=== PATIENT | male | born 2000 | race African-American/Black ===

== ENCOUNTER 2018-12-03 19:33 | Emergency (ER) | payer SELFPAY ==
[~2018-12-03] VITALS: Ht 177.8 cm; Wt 95.3 kg
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
--- OUTSIDE RECORDS SUMMARY | 2018-12-03 19:36 | XMS REPORT ---
Author Author [facility] Address Unknown Phone Unavailable Care Team Providers Care Name Role Phone Unavailable Unavailable Payers Payer Name Policy Type Policy Number Effective Date Expiration Date Problems This patient has no known problems. Allergies, Adverse Reactions, Alerts Allergy Name Allergy Type Status Severity Reaction(s) Onset Date Inactive Date Treating Clinician Comments Fish Containing Products DA Active SV 2018-11-23 00:00:00 Fish Containing Products DA Active SV 2018-07-18 00:00:00 Fish Containing Products DA Active SV 2017-09-24 00:00:00 Medications This patient has no known medications. Encounters Start Date/Time End Date/Time Encounter Type Admission Type Attending Clinicians Care Facility Care Department Encounter ID 2018-11-24 22:23:20 2018-11-24 22:23:20 Emergency [facility] [id number] 2018-11-24 15:49:20 2018-11-24 15:49:20 Emergency [facility] [id number] Results Test Description Test Time Test Comments Text Results Atomic Results Result Comments BASIC METABOLIC PANEL 2018-11-23 01:29:00 SODIUM (test code=NA) 139 mmol/L 136-145 POTASSIUM (test code=K) 3.5 mmol/L 3.5-5.1 CHLORIDE (test code=CL) 103.0 mmol/L 98-107 CARBON DIOXIDE (test code=CO2) 25.0 mmol/L 21-32 ANION GAP (test code=GAP) 14.5 10-20 GLUCOSE (test code=GLU) 113 mg/dL 74-106 BLOOD UREA NITROGEN (test code=BUN) 19 mg/dL 7-18 GLOMERULAR FILTRATION RATE (test code=GFR) > 60 mL/min >=60 Estimated GFR by using Modified MDRD formula.Chronic kidney disease is defined as either kidney damageor GFR <60 mL/min/1.73 m2 for >3 months. CREATININE (test code=CREAT) 1.40 mg/dL 0.7-1.3 BUN/CREATININE RATIO (test code=BUN/CREA) 13.6 10-20 CALCIUM (test code=CA) 8.6 mg/dL 8.5-10.1 [id number] 01:29:00* Test Item Value Reference Range Comments ALCOHOL (test code=ALC) < 3 mg/dL 0.0-3.0 INTERPRETIVE DATA NOTE: POSITIVE SCREENING RESULTS SHOULD BE CONSIDERED PRESUMPTIVE.WHEN COLLECTED FOR MEDICAL PURPOSES ONLY. SPECIMEN WILL NOTBE COLLECTED BY CHAIN OF CUSTODY.IF A CONFIRMATION OF POSITIVE RESULTS IS DESIRED, ACONFIRMATION TEST MUST BE REQUESTED BY THE PHYSICIAN AT ANADDITIONAL CHARGE TO THE PATIENT. BASIC METABOLIC [id number] 01:20:00* Test Item Value Reference Range Comments SODIUM (test code=NA) 139 mmol/L 136-145 POTASSIUM (test code=K) 3.5 mmol/L 3.5-5.1 CHLORIDE (test code=CL) 103.0 mmol/L 98-107 CARBON DIOXIDE (test code=CO2) mmol/L 21-32 ANION GAP (test code=GAP) 10-20 GLUCOSE (test code=GLU) mg/dL 74-106 BLOOD UREA NITROGEN (test code=BUN) mg/dL 7-18 GLOMERULAR FILTRATION RATE (test code=GFR) mL/min >=60 CREATININE (test code=CREAT) mg/dL 0.7-1.3 BUN/CREATININE RATIO (test code=BUN/CREA) 10-20 CALCIUM (test code=CA) mg/dL 8.5-10.1 [id number] 01:20:00* Test Item Value Reference Range Comments ALCOHOL (test code=ALC) mg/dL 0-3 - XR TIBIA/FIBULA 2 V [id number] 01:13:00 FAX: Bereket Bosch DO [place]: B St: REG Name: [facility] : [birth year] Age/S: 18/M [address] [facility] Unit #: [id number] Loc: [place] [address] Phys: Bereket Bosch DO Acct: [id number] Dis Date: Status: REG ER PHONE #: [phone] Exam Date: 11/23/2018 0055 FAX #: [phone] Reason: LEG PAIN EXAMS: CPT CODE: [id number] XR TIBIA/FIBUL[place] 2 [place] [id number] EXAM: - XR TIBIA/FIBULA 2 V LT HISTORY: Pain. COMPARISON: None available time of inte rpretation. FINDINGS: 2 AP and 2 lateral views of the right tibia and fibula are provided. There is no acute fracture or malalignmen t. IMPRESSION: No acute osseous abnormality. at 0113 Reported and signed by: Burton Tucker MD CC: Bereket Bosch DO Technologist: RT LYN(R) Trnscrd Date/Time/By: 0 11/23/2018 (0113) : By: [email or web address] Orig Print D/T: S: 11/23/2018 (0116) PAGE 1 Signed Report - XR ANKLE 3 + V [id number] 01:10:00 FAX: Bereket Bosch DO [place]: B St: REG Name: [facility] PR[facility] : [birth year] Age/S: 18/M [address] Unit #: [id number] Loc: [place] [address] Phys: Bereket Bosch DO Acct: [id number] Dis Date: Status: REG ER PHONE #: [phone] Exam Date: 11/23/2018 0050 FAX #: [phone] Reason: ANKLE PAIN EXAMS: CPT CODE: [id number] XR ANKLE 3 + V LT [id number] EXAM: - XR ANKLE 2+ V LT HISTORY: Pain. COMPARISON: None available time of interpreta tion. FINDINGS: AP and lateral view of the left ankle is pro vided. There is no acute fracture or malalignment. The joint spaces are p reserved. The osseous structures are intact. IMPRESSION: No acute osseous abnormality. at 0110 Reported and signed by: Burton Tucker MD CC: Bereket Bosch DO Technologist: RT LYN(Anu) Trnscrd Date/Time/By: 11/23/2018 (0110) : By: [email or web address] Orig Print D/T: S: 11/23/2018 (0114) PAGE 1 Signed Report CBC W/O [id number] 01:05:00 * Test Item Value Reference Range Comments WHITE BLOOD CELL (test code=WBC) 5.6 K/mm3 4.5-12.5 RED BLOOD CELL (test code=RBC) 4.90 mill/mm3 4.0-5.8 HEMOGLOBIN (test code=HGB) 13.5 gram/dL 13.0-17.5 HEMATOCRIT (test code=HCT) 41.2 % 42.0-52.0 MEAN CELL VOLUME (test code=MCV) 84.1 fL 80-98 MEAN CELL HGB (test code=MCH) 27.6 picogram 27.0-33.0 MEAN CELL HGB CONCETRATION (test code=MCHC) 32.8 gram/dL 33.0-36.0 RED CELL DISTRIBUTION WIDTH (test code=RDW) 12.9 % 11.6-16.2 PLATELET COUNT (test code=PLT) 241 K/mm3 150-450 MEAN PLATELET VOLUME (test code=MPV) 9.9 fL 6.7-11.0 CBC W/O [id number] 01:04:00* Test Item Value Reference Range Comments WHITE BLOOD CELL (test code=WBC) K/mm3 4.5-12.5 RED BLOOD CELL (test code=RBC) mill/mm3 4.0-5.8 HEMOGLOBIN (test code=HGB) 13.5 gram/dL 13.0-17.5 HEMATOCRIT (test code=HCT) % 42.0-52.0 MEAN CELL VOLUME (test code=MCV) fL 80-98 MEAN CELL HGB (test code=MCH) picogram 27.0-33.0 MEAN CELL HGB CONCETRATION (test code=MCHC) gram/dL 33.0-36.0 RED CELL DISTRIBUTION WIDTH (test code=RDW) % 11.6-16.2 PLATELET COUNT (test code=PLT) K/mm3 150-450 MEAN PLATELET VOLUME (test code=MPV) fL 6.7-11.0
== END 2018-12-03 19:42 | disposition left against medical advice (07) ==
LOC: ER 19:33
DX: M79.662 Pain in left lower leg (principal)